=== PATIENT | female | born 1985 | race African-American/Black ===

== ENCOUNTER 2017-10-17 06:33 | Inpatient (IN) | payer MEDICAID, OTHER ==
[~2017-10-17] VITALS: Ht 165.1 cm; Wt 65.8 kg
[2017-10-17] MEDS ORDERED: Morphine Sulfate 4mg/ml Inj IVP ONE ×2 (07:00→08:45)
[2017-10-17] MEDS ORDERED: Ketorolac 30mg Inj IM ONE (07:00)
[2017-10-17] MEDS ORDERED: Ketorolac 30mg Inj IV ONE (07:00)
[2017-10-17] MEDS ORDERED: DiphenhydrAMINE 50mg/ml Inj IVP ONE (07:00)
[2017-10-17 07:30] VITALS: BP 115/73
[2017-10-17 07:49] LABS: BASOPHILS % (AUTO) 1.2 % (0.0-2.0); EOSINOPHILS % (AUTO) 0.3 % (0.0-3.0); HEMATOCRIT 31.4 % (37.0-47.0); HEMOGLOBIN 10.8 G/DL (12.0-16.0); LYMPHOCYTES % (AUTO) 15.6 % (20.0-45.0); MEAN CORPUSCULAR VOLUME 80 FL (80-99); MONOCYTES % (AUTO) 7.1 % (1.0-10.0); NEUTROPHILS % (AUTO) 75.8 % (45.0-75.0); PLATELET COUNT 221 K/UL (150-450); RED BLOOD COUNT 3.95 M/UL (4.20-5.40); RED CELL DISTRIBUTION WIDTH 15.1 % (11.6-14.8); WHITE BLOOD COUNT 10.6 K/UL (4.8-10.8)
--- NOTE | 2017-10-17 07:49 | Emergency Room Report ---
History of Present Illness General Chief Complaint: Pain Source: Patient Present Illness HPI Patient presents in emergency department today complaining of acute sickle cell crisis. Patient states that she has a sickle cell disease and prior episodes sickle cell crisis requiring admission in the past. Patient states that usually however she is able to manage as an outpatient and she has only been admitted and seen a emergency department back in 2010 when she had a flare in [place]. She denies any recent trauma denies any drug use coughing no fever. States that the pain is mostly in her elbows shoulders and knees. She denies any chest pain or shortness of breath. No other complaints are noted. Symptoms noted to be severe. Patient appear very uncomfortable.No other modifying factors. No other associated signs and symptoms. No other complaints were noted. Allergies: Coded Allergies: No Known Allergies (Unverified , 10/17/17) Patient History Past Medical History: other - Sickle cell disease Past Surgical History: none Pertinent Family History: none Social History: Denies: smoking, alcohol use, drug use Last Menstrual Period: 10/11/17 Now: No Reviewed Nursing Documentation: PMH: Agreed; PSxH: Agreed Nursing Documentation-PMH Hx Cardiac Problems: Yes - Murmur, Sickle cell, Anemia Review of Systems All Other Systems: negative except mentioned in HPI Physical Exam Vital Signs Date Time Temp Pulse Resp B/P (MAP) Pulse Ox O2 Delivery O2 Flow Rate FiO2 10/17/17 06:40 98.5 69 24 122/86 99 Room Air 98.4 Sp02 EP Interpretation: reviewed, normal General Appearance: alert, moderate distress Head: atraumatic Eyes: bilateral eye normal inspection ENT: normal ENT inspection, hearing grossly normal, normal voice Neck: normal inspection, full range of motion, supple, no bony tend Respiratory: normal inspection, lungs clear, normal breath sounds, no respiratory distress, no retraction, no wheezing Cardiovascular #1: regular rate, rhythm, no edema Gastrointestinal: normal inspection, soft, no guarding, no hernia Genitourinary: no CVA tenderness Musculoskeletal: normal inspection, back normal, normal range of motion Neurologic: normal inspection, alert, responsive, speech normal Psychiatric: depressed affect, anxious Skin: normal inspection, normal color, no rash Medical Decision Making Diagnostic Impression: Primary Impression: Sickle cell pain crisis ER Course Patient presents emergency department today complaining of body aches secondary sickle cell crisis. Differential considerations include sickle cell crisis, myalgias, arthritis just name a few.Given the severity of the patient's presentation I felt this is a highly complex patient. This patient required extensive workup. Patient's laboratory workup and history is consistent with sickle cell crisis. Patient had an IV established received Toradol Benadryl fluids and morphine. Patient's feeling better. Patient received a total of 3 L of fluids. Patient was offered admission but declined states that she would prefer to be treated at home I felt that this is reasonable given patient's symptoms are improved. Patient was given prescription for [place] to be taken as needed. Recommend outpatient follow-up with primary care physician.Patient is advised to follow up with primary doctor in 2-3 days and return the emergency room for any worsening symptoms and as needed. Labs Test 10/17/17 06:58 White Blood Count 10.6 K/UL (4.8-10.8) Red Blood Count 3.95 M/UL (4.20-5.40) Hemoglobin 10.8 G/DL (12.0-16.0) Hematocrit 31.4 % (37.0-47.0) Mean Corpuscular Volume 80 FL (80-99) Mean Corpuscular Hemoglobin 27.4 PG (27.0-31.0) Mean Corpuscular Hemoglobin Concent 34.4 G/DL (32.0-36.0) Red Cell Distribution Width 15.1 % (11.6-14.8) Platelet Count 221 K/UL (150-450) Mean Platelet Volume 7.3 FL (6.5-10.1) Neutrophils (%) (Auto) 75.8 % (45.0-75.0) Lymphocytes (%) (Auto) 15.6 % (20.0-45.0) Monocytes (%) (Auto) 7.1 % (1.0-10.0) Eosinophils (%) (Auto) 0.3 % (0.0-3.0) Basophils (%) (Auto) 1.2 % (0.0-2.0) Reticulocyte Count 4.0 % (0.0-2.0) Sodium Level 134 MMOL/L (136-145) Potassium Level 4.2 MMOL/L (3.5-5.1) Chloride Level 101 MMOL/L (98-107) Carbon Dioxide Level 21 MMOL/L (21-32) Anion Gap 12 mmol/L (5-15) Blood Urea Nitrogen 7 mg/dL (7-18) Creatinine 0.8 MG/DL (0.55-1.30) Estimat Glomerular Filtration Rate > 60 mL/min (>60) Glucose Level 128 MG/DL (74-106) Calcium Level 8.9 MG/DL (8.5-10.1) Total Bilirubin 0.9 MG/DL (0.2-1.0) Aspartate Amino Transf (AST/SGOT) 43 U/L (15-37) Alanine Aminotransferase (ALT/SGPT) 29 U/L (12-78) Alkaline Phosphatase 62 U/L (46-116) Total Protein 8.3 G/DL (6.4-8.2) Albumin 4.1 G/DL (3.4-5.0) Globulin 4.2 g/dL Albumin/Globulin Ratio 1.0 (1.0-2.7) EKG Diagnostic Results Rate: normal Rhythm: NSR ST Segments: no acute changes Rhythm Strip Diag. Results EP Interpretation: yes Rate: 63 Rhythm: NSR, no PVC's, no ectopy Last Vital Signs Date Time Temp Pulse Resp B/P (MAP) Pulse Ox O2 Delivery O2 Flow Rate FiO2 10/17/17 07:30 65 20 115/73 96 Room Air 10/17/17 07:28 98.5 Status: improved Disposition: HOME, SELF-CARE Condition: Stable Scripts Ibuprofen* (MOTRIN*) 600 Mg Tablet 600 MG ORAL Q8H PRN for For Pain, #20 TAB 0 Refills Prov: Joe Hendricks MD 10/17/17 Hydrocodone Bit/Acetaminophen 5-325* ([place] 5-325*) 1 Each Tablet 1 TAB ORAL Q6H PRN for For Pain, #20 TAB 0 Refills Prov: Joe Hendricks MD 10/17/17 Referrals: NON PHYSICIAN (PCP) Joe Hendricks MD Oct 17, 2017 07:49
[2017-10-17 08:21] LABS: ANION GAP 12 mmol/L (5-15); BLOOD UREA NITROGEN 7 mg/dL (7-18); CALCIUM 8.9 MG/DL (8.5-10.1); CARBON DIOXIDE 21 MMOL/L (21-32); CHLORIDE 101 MMOL/L (98-107); CREATININE 0.8 MG/DL (0.55-1.30); POTASSIUM 4.2 MMOL/L (3.5-5.1); SODIUM 134 MMOL/L (136-145)
[2017-10-17 08:26] LABS: ALANINE AMINOTRANSFERASE 29 U/L (12-78); ALBUMIN 4.1 G/DL (3.4-5.0); ALKALINE PHOSPHATASE 62 U/L (46-116); ASPARTATE AMINO TRANSFERASE 43 U/L (15-37); BILIRUBIN,TOTAL 0.9 MG/DL (0.2-1.0)
[2017-10-17] MEDS ORDERED: NORCO 5-325 TA1 EACH ORAL (09:03)
[2017-10-17] MEDS ORDERED: IBUPROFEN600 MG ORAL ×2 (09:03→12:13)
[2017-10-17 09:35] VITALS: BP 105/64
[2017-10-17] MEDS ORDERED: Mylanta II UD 30ml ORAL PRN (12:15)
[2017-10-17] MEDS ORDERED: Norco 5mg/325mg tab ORAL PRN ×2 (12:15→21:30)
[2017-10-17] MEDS ORDERED: Zolpidem 5mg tab ORAL PRN (12:15)
[2017-10-17] MEDS ORDERED: LORazepam Inj 2mg/ml 1ml IV PRN (12:15)
[2017-10-17] MEDS ORDERED: Miralax 17gm pkt ORAL PRN (12:15)
[2017-10-17 13:20] VITALS: BP 96/61
[2017-10-17 13:56] VITALS: BP 101/59
[2017-10-17 16:00] VITALS: BP 113/68
[2017-10-17 19:15] VITALS: BP 108/64
[2017-10-17] MEDS: Morphine Sulfate 2mg/ml Inj IVP PRN (21:43)
[2017-10-17] MEDS: Heparin 5000 units/ml inj SUBQ SCH (21:47)
[2017-10-18] VITALS: BP 124/74
[2017-10-18] MEDS: Morphine Sulfate 2mg/ml Inj IVP PRN ×5 (02:41→23:54)
[2017-10-18 04:00] VITALS: BP 118/74
[2017-10-18 06:26] LABS: EOSINOPHILS % (AUTO) 0.4 % (0.0-3.0); HEMATOCRIT 27.2 % (37.0-47.0); HEMOGLOBIN 9.5 G/DL (12.0-16.0); LYMPHOCYTES % (AUTO) 21.1 % (20.0-45.0); MEAN CORPUSCULAR VOLUME 81 FL (80-99); MONOCYTES % (AUTO) 9.9 % (1.0-10.0); NEUTROPHILS % (AUTO) 67.6 % (45.0-75.0); PLATELET COUNT 168 K/UL (150-450); RED BLOOD COUNT 3.38 M/UL (4.20-5.40); RED CELL DISTRIBUTION WIDTH 15.3 % (11.6-14.8)
[2017-10-18 06:54] LABS: ALANINE AMINOTRANSFERASE 55 U/L (12-78); ALBUMIN 3.4 G/DL (3.4-5.0); ALKALINE PHOSPHATASE 53 U/L (46-116); ANION GAP 8 mmol/L (5-15); ASPARTATE AMINO TRANSFERASE 45 U/L (15-37); BILIRUBIN,TOTAL 0.8 MG/DL (0.2-1.0); BLOOD UREA NITROGEN 4 mg/dL (7-18); CALCIUM 8.1 MG/DL (8.5-10.1); CARBON DIOXIDE 24 MMOL/L (21-32); CHLORIDE 106 MMOL/L (98-107); CREATININE 0.7 MG/DL (0.55-1.30); LACTATE DEHYDROGENASE 241 U/L (81-234); SODIUM 138 MMOL/L (136-145)
--- NOTE | 2017-10-18 07:59 | Consultation ---
History of Present Illness General Chief Complaint: Present Illness Allergies: Coded Allergies: No Known Allergies (Unverified , 10/17/17) Medication History Scheduled Ibuprofen* (Motrin*), 800 MG ORAL THREE TIMES A DAY, (Reported) Scheduled PRN Hydrocodone Bit/Acetaminophen 5-325* (Fox 5-325*), 1 TAB ORAL Q6H PRN for For Pain Ibuprofen* (Motrin*), 600 MG ORAL Q8H PRN for For Pain Patient History Healthcare decision maker Resuscitation status Full Code Advanced Directive on File Physical Exam Last 24 Hour Vital Signs Date Time Temp Pulse Resp B/P (MAP) Pulse Ox O2 Delivery O2 Flow Rate FiO2 10/18/17 04:00 97.7 55 20 118/74 100 Room Air 97.7 10/18/17 00:00 99.3 59 21 124/74 99 Room Air 99.3 10/17/17 22:13 97.9 10/17/17 21:43 97.9 10/17/17 20:15 Room Air 10/17/17 19:15 97.9 65 20 108/64 98 Room Air 97.9 10/17/17 16:22 97.9 10/17/17 16:00 97.8 68 20 113/68 99 Room Air 97.8 10/17/17 15:23 97.9 10/17/17 13:56 97.9 56 20 101/59 99 Room Air 97.9 10/17/17 13:35 98.5 54 18 96/61 99 Room Air 98.5 10/17/17 13:20 54 18 96/61 99 Room Air 10/17/17 10:35 98.5 10/17/17 09:35 58 18 105/64 99 Room Air 10/17/17 09:25 98.5 Intake and Output 10/17/17 10/18/17 19:00 07:00 Intake Total 4150 ml 1500 ml Balance 4150 ml 1500 ml Intake Oral 600 ml IV Total 4150 ml 900 ml # Voids 4 1 Laboratory Tests Test 10/17/17 10:17 10/18/17 05:10 Urine HCG, Qualitative Negative (NEGATIVE) White Blood Count 11.0 K/UL (4.8-10.8) H Red Blood Count 3.38 M/UL (4.20-5.40) L Hemoglobin 9.5 G/DL (12.0-16.0) L Hematocrit 27.2 % (37.0-47.0) L Mean Corpuscular Volume 81 FL (80-99) Mean Corpuscular Hemoglobin 28.1 PG (27.0-31.0) Mean Corpuscular Hemoglobin Concent 34.8 G/DL (32.0-36.0) Red Cell Distribution Width 15.3 % (11.6-14.8) H Platelet Count 168 K/UL (150-450) Mean Platelet Volume 7.1 FL (6.5-10.1) Neutrophils (%) (Auto) 67.6 % (45.0-75.0) Lymphocytes (%) (Auto) 21.1 % (20.0-45.0) Monocytes (%) (Auto) 9.9 % (1.0-10.0) Eosinophils (%) (Auto) 0.4 % (0.0-3.0) Basophils (%) (Auto) 1.0 % (0.0-2.0) Sodium Level 138 MMOL/L (136-145) Potassium Level 4.0 MMOL/L (3.5-5.1) Chloride Level 106 MMOL/L (98-107) Carbon Dioxide Level 24 MMOL/L (21-32) Anion Gap 8 mmol/L (5-15) Blood Urea Nitrogen 4 mg/dL (7-18) L Creatinine 0.7 MG/DL (0.55-1.30) Estimat Glomerular Filtration Rate > 60 mL/min (>60) Glucose Level 99 MG/DL (74-106) Calcium Level 8.1 MG/DL (8.5-10.1) L Total Bilirubin 0.8 MG/DL (0.2-1.0) Aspartate Amino Transf (AST/SGOT) 45 U/L (15-37) H Alanine Aminotransferase (ALT/SGPT) 55 U/L (12-78) Alkaline Phosphatase 53 U/L (46-116) Lactate Dehydrogenase 241 U/L (81-234) H Total Protein 6.9 G/DL (6.4-8.2) Albumin 3.4 G/DL (3.4-5.0) Globulin 3.5 g/dL Albumin/Globulin Ratio 1.0 (1.0-2.7) Height (Feet): 5 Height (Inches): 5.00 Weight (Pounds): 145 Medications Current Medications Medications (Trade) Dose Ordered Sig/Sabina Route PRN Reason Start Time Stop Time Status Last Admin Dose Admin Acetaminophen (Tylenol) 650 mg Q4H PRN ORAL fever 10/17/17 12:15 11/16/17 12:14 Acetaminophen/ Hydrocodone Bitart (Fox 5/325) 1 tab Q4H PRN ORAL Moderate Pain (Pain Scale 4-6) 10/17/17 21:30 10/24/17 21:29 Al Hydroxide/Mg Hydroxide (Mylanta II) 30 ml Q6H PRN ORAL dyspepsia 10/17/17 12:15 11/16/17 12:14 Dextrose (Dextrose 50%) 25 ml STAT PRN IV Hypoglycemia 10/17/17 21:45 11/16/17 21:44 Dextrose (Dextrose 50%) 50 ml STAT PRN IV Hypoglycemia 10/17/17 21:45 11/16/17 21:44 Heparin Sodium (Porcine) (Heparin 5000 units/ml) 5,000 units EVERY 12 HOURS SUBQ 10/17/17 21:00 11/16/17 20:59 10/17/17 21:47 Ibuprofen (Motrin) 600 mg Q8H PRN ORAL PAIN LEVEL 1-6 10/17/17 12:15 11/16/17 12:14 Lorazepam (Ativan 2mg/ml 1ml) 0.5 mg Q4H PRN IV For Anxiety 10/17/17 12:15 10/24/17 12:14 Morphine Sulfate (Morphine Sulfate) 2 mg Q4H PRN IVP Severe Pain (Pain Scale 7-10) 10/17/17 21:30 10/24/17 21:29 10/18/17 02:41 Ondansetron HCl (Zofran) 4 mg Q6H PRN IVP Nausea & Vomiting 10/17/17 12:15 11/16/17 12:14 Polyethylene Glycol (Miralax) 17 gm HSPRN PRN ORAL Constipation 10/17/17 12:15 11/16/17 12:14 Sodium Chloride 1,000 ml @ 75 mls/hr [id number] IV 10/17/17 12:30 11/16/17 12:29 10/18/17 02:38 Zolpidem Tartrate (Ambien) 5 mg HSPRN PRN ORAL Insomnia 10/17/17 12:15 10/24/17 12:14 Assessment/Plan Assessment/Plan (1) Sickle cell disease (2) Sickle cell crisis (3) Intractable pain seen dictated. Lucio Chavez Oct 18, 2017 07:58
[2017-10-18 08:00] VITALS: BP 114/70
[2017-10-18] MEDS: Heparin 5000 units/ml inj SUBQ SCH ×2 (09:28→21:34)
[2017-10-18] MEDS ORDERED: 1/2 NS 1000ml IV ONE (09:42)
--- NOTE | 2017-10-18 10:45 | Consultation ---
DATE OF CONSULTATION: 10/18/2017 PAIN MANAGEMENT CONSULTATION CONSULTING PHYSICIAN: Faustino Frye M.D. REFERRING PHYSICIAN: Iman Hyatt M.D. PHYSICIAN PROJECT DEVELOPMENT ENGINEER: Saran Trevizo CHIEF COMPLAINT: Generalized body pain. HISTORY OF PRESENT ILLNESS: This is a 32-year-old female, who is being seen on the Med/Surg floor of [facility] for initial comprehensive pain management consultation. The patient was admitted under the care of Dr. Oneal, due to sickle cell disease and crisis. Reports that she has been having sickle cell disease and once had a sickle cell crisis in [place]. Recently relocated from [place] to [facility]. Reports that she takes ibuprofen as an outpatient. At this time, the patient was on morphine 2 mg IV every four hours as needed for severe pain and a [place] 5/325 one tablet every four hours as needed for mild pain. The patient reports that the pain is reduced from 10/10 to 7/10. Reports the pain is an aching, soreness in her joints, which she has been tolerated well at this time and has no other complaints. We were consulted to help the patient to have adequate pain control while here in the hospital for fast recovery. PAST MEDICAL HISTORY: Sickle cell disease. PAST SURGICAL HISTORY: Denies. SOCIAL HISTORY: Denies smoking tobacco, drinking alcohol, or IV drug abuse. ALLERGIES: No known drug allergies. MEDICATIONS: Ibuprofen. REVIEW OF SYSTEMS: Denies rash, fever, chills, sweating, dizziness, drowsiness, blurred vision, sore throat, or change in weight. No shortness of breath or chest pain. No nausea, vomiting, diarrhea, or blood in the stool or urine. No bowel or bladder incontinence. No dysuria. She is complaining of generalized body pain. PHYSICAL EXAMINATION: GENERAL: Alert, awake, and oriented x3. VITAL SIGNS: Blood pressure 118/74, heart rate 55, oxygen saturation 100%, respiratory rate 20, and temperature is 97.7 degrees Fahrenheit. HEENT: PERRLA. NECK: Range of motion is full in all directions. No tenderness to paracervical muscles. No adenopathy. LUNGS: Decreased breath sounds bilaterally. HEART: Regular. ABDOMEN: Benign. BACK: Range of motion is decreased in flexion and extension with tenderness to paraspinal muscles. No tenderness to trapezius and rhomboid muscles. EXTREMITIES: Upper and lower extremity motion is decreased to the patient's clinical condition. No cyanosis. No clubbing. No edema. Sensory is intact. Reflexes are not obtainable. No adenopathy. ASSESSMENT AND PLAN: This is a 32-year-old female with sickle cell disease, sickle cell crisis, intractable pain. The patient will be continued on morphine and [place] as needed. We recommend the patient to be seen by starch crab. The patient was discussed with Dr. Frye and Dr. Frye concurred. We will follow the patient. Thank you very much for the courtesy of this consultation. Faustino Frye M.D. AUSTIN Trevizo DR: MIKE JOB#: [id number] CC: NO
[2017-10-18 12:00] VITALS: BP 118/54
--- NOTE | 2017-10-18 13:55 | Consultation ---
History of Present Illness General Chief Complaint: Pain Present Illness Allergies: Coded Allergies: No Known Allergies (Unverified , 10/17/17) Medication History Scheduled Ibuprofen* (Motrin*), 800 MG ORAL THREE TIMES A DAY, (Reported) Scheduled PRN Hydrocodone Bit/Acetaminophen 5-325* ([place] 5-325*), 1 TAB ORAL Q6H PRN for For Pain Ibuprofen* (Motrin*), 600 MG ORAL Q8H PRN for For Pain Patient History Healthcare decision maker Resuscitation status Full Code Advanced Directive on File Physical Exam Last 24 Hour Vital Signs Date Time Temp Pulse Resp B/P (MAP) Pulse Ox O2 Delivery O2 Flow Rate FiO2 10/18/17 13:54 96.8 10/18/17 12:00 96.8 54 20 118/54 100 Room Air 96.8 10/18/17 09:52 98.7 10/18/17 09:22 98.7 10/18/17 08:00 98.7 54 20 114/70 100 98.7 10/18/17 04:00 97.7 55 20 118/74 100 Room Air 97.7 10/18/17 00:00 99.3 59 21 124/74 99 Room Air 99.3 10/17/17 21:43 97.9 10/17/17 20:15 Room Air 10/17/17 19:15 97.9 65 20 108/64 98 Room Air 97.9 10/17/17 16:22 97.9 10/17/17 16:00 97.8 68 20 113/68 99 Room Air 97.8 10/17/17 15:23 97.9 10/17/17 13:56 97.9 56 20 101/59 99 Room Air 97.9 Intake and Output 10/17/17 10/18/17 19:00 07:00 Intake Total 4150 ml 1500 ml Balance 4150 ml 1500 ml Intake Oral 600 ml IV Total 4150 ml 900 ml # Voids 4 1 Laboratory Tests Test 10/18/17 05:10 White Blood Count 11.0 K/UL (4.8-10.8) H Red Blood Count 3.38 M/UL (4.20-5.40) L Hemoglobin 9.5 G/DL (12.0-16.0) L Hematocrit 27.2 % (37.0-47.0) L Mean Corpuscular Volume 81 FL (80-99) Mean Corpuscular Hemoglobin 28.1 PG (27.0-31.0) Mean Corpuscular Hemoglobin Concent 34.8 G/DL (32.0-36.0) Red Cell Distribution Width 15.3 % (11.6-14.8) H Platelet Count 168 K/UL (150-450) Mean Platelet Volume 7.1 FL (6.5-10.1) Neutrophils (%) (Auto) 67.6 % (45.0-75.0) Lymphocytes (%) (Auto) 21.1 % (20.0-45.0) Monocytes (%) (Auto) 9.9 % (1.0-10.0) Eosinophils (%) (Auto) 0.4 % (0.0-3.0) Basophils (%) (Auto) 1.0 % (0.0-2.0) Sodium Level 138 MMOL/L (136-145) Potassium Level 4.0 MMOL/L (3.5-5.1) Chloride Level 106 MMOL/L (98-107) Carbon Dioxide Level 24 MMOL/L (21-32) Anion Gap 8 mmol/L (5-15) Blood Urea Nitrogen 4 mg/dL (7-18) L Creatinine 0.7 MG/DL (0.55-1.30) Estimat Glomerular Filtration Rate > 60 mL/min (>60) Glucose Level 99 MG/DL (74-106) Calcium Level 8.1 MG/DL (8.5-10.1) L Total Bilirubin 0.8 MG/DL (0.2-1.0) Aspartate Amino Transf (AST/SGOT) 45 U/L (15-37) H Alanine Aminotransferase (ALT/SGPT) 55 U/L (12-78) Alkaline Phosphatase 53 U/L (46-116) Lactate Dehydrogenase 241 U/L (81-234) H Total Protein 6.9 G/DL (6.4-8.2) Albumin 3.4 G/DL (3.4-5.0) Globulin 3.5 g/dL Albumin/Globulin Ratio 1.0 (1.0-2.7) Height (Feet): 5 Height (Inches): 5.00 Weight (Pounds): 145 Medications Current Medications Medications (Trade) Dose Ordered Sig/Sabina Route PRN Reason Start Time Stop Time Status Last Admin Dose Admin Acetaminophen (Tylenol) 650 mg Q4H PRN ORAL fever 10/17/17 12:15 11/16/17 12:14 Acetaminophen/ Hydrocodone Bitart ([place] 5/325) 1 tab Q4H PRN ORAL Moderate Pain (Pain Scale 4-6) 10/17/17 21:30 10/24/17 21:29 Al Hydroxide/Mg Hydroxide (Mylanta II) 30 ml Q6H PRN ORAL dyspepsia 10/17/17 12:15 11/16/17 12:14 Dextrose (Dextrose 50%) 25 ml STAT PRN IV Hypoglycemia 10/17/17 21:45 11/16/17 21:44 Dextrose (Dextrose 50%) 50 ml STAT PRN IV Hypoglycemia 10/17/17 21:45 11/16/17 21:44 Heparin Sodium (Porcine) (Heparin 5000 units/ml) 5,000 units EVERY 12 HOURS SUBQ 10/17/17 21:00 11/16/17 20:59 10/18/17 09:28 Ibuprofen (Motrin) 600 mg Q8H PRN ORAL PAIN LEVEL 1-6 10/17/17 12:15 11/16/17 12:14 Lorazepam (Ativan 2mg/ml 1ml) 0.5 mg Q4H PRN IV For Anxiety 10/17/17 12:15 10/24/17 12:14 Morphine Sulfate (Morphine Sulfate) 2 mg Q4H PRN IVP Severe Pain (Pain Scale 7-10) 10/17/17 21:30 10/24/17 21:29 10/18/17 13:54 Ondansetron HCl (Zofran) 4 mg Q6H PRN IVP Nausea & Vomiting 10/17/17 12:15 11/16/17 12:14 Polyethylene Glycol (Miralax) 17 gm HSPRN PRN ORAL Constipation 10/17/17 12:15 11/16/17 12:14 Sodium Chloride 1,000 ml @ 75 mls/hr [id number] IV 10/17/17 12:30 11/16/17 12:29 10/18/17 02:38 Zolpidem Tartrate (Ambien) 5 mg HSPRN PRN ORAL Insomnia 10/17/17 12:15 10/24/17 12:14 Iman Hyatt MD Oct 18, 2017 13:55
[2017-10-18 16:00] VITALS: BP 122/65
--- NOTE | 2017-10-18 17:26 | History & Physical ---
History and Physical History & Physicial Dictated for Int Med-Dr Oneal no. [id number]. Varghese Álvarez MD Oct 18, 2017 17:26
--- NOTE | 2017-10-18 18:30 | History and Physical Report ---
DATE OF ADMISSION: 10/17/2017 CHIEF COMPLAINT: The patient is a 32-year-old female, presents with chief complaint of generalized pain. HISTORY OF PRESENT ILLNESS: The patient has a history of sickle cell disease. The patient recently moved to [place] from [place]. The patient states she has been hospitalized in the past for sickle cell crisis. The patient states history of present illness began two days previously. The patient began to have joint pain. The patient complains of bilateral shoulder, elbow, knee and quesada pain. The patient presented to [facility]. The patient was admitted with sickle cell crisis. REVIEW OF SYSTEMS: CONSTITUTIONAL: The patient denies weight loss or gain. The patient denies fevers or chills. HEENT: The patient denies ear or throat pain. The patient denies headache. CARDIOVASCULAR: The patient denies palpitations or chest pain. CHEST: The patient denies wheeze or shortness of breath. ABDOMEN: The patient denies nausea, vomiting, diarrhea, or constipation. GENITOURINARY: The patient denies dysuria or increased frequency of urination. NEUROMUSCULAR: The patient complains of generalized pain as above. The patient denies seizures or generalized weakness. PAST MEDICAL HISTORY: Significant for sickle cell disease. PAST SURGICAL HISTORY: Significant for tonsillectomy. CURRENT MEDICATIONS: P.r.n. ibuprofen. ALLERGIES: No known drug allergies. SOCIAL HISTORY: The patient is single and works for [employer]. The patient denies tobacco use. The patient has occasional alcohol use. The patient does smoke medical marijuana. PHYSICAL EXAMINATION: GENERAL: The patient is well-developed and well-nourished female, in no apparent distress. VITAL SIGNS: Temperature 98.7 degrees, respirations 20, pulse 64, and blood pressure 114/70. HEENT: Eyes, pupils equal and responsive to light and accommodation. Extraocular movements are intact. NECK: Supple without lymphadenopathy. CHEST: Lungs are clear to auscultation bilaterally without wheezes or rales. CARDIOVASCULAR: Regular rate. S1 and S2 normal without murmurs, rubs, or gallops. ABDOMEN: Soft, nontender, and nondistended. Positive bowel sounds. No evidence of hepatosplenomegaly. Currently, no rebound or guarding noted. EXTREMITIES: Negative for clubbing, cyanosis, or edema. RECTAL/GENITAL: Refused. NEUROLOGICAL: Cranial nerves II through XII are grossly intact without focal deficits. Motor strength is 5/5 bilaterally. Deep tendon reflexes are 2+ plantar. LABORATORY AND DIAGNOSTIC DATA: WBC 10.6, hemoglobin 10.8, hematocrit 31.4 and platelets 221,000. Sodium 134, potassium 4.2, chloride 101, CO2 21, BUN 7, creatinine 0.8 and glucose 128. ASSESSMENT: This is a 32-year-old, female 1. Sickle cell disease. 2. Sickle cell crisis. TREATMENT: Sickle cell disease/sickle cell crisis. A Hematology/Oncology consultation has been obtained with Dr. Obinna Mack. A pain management consultation has been obtained with Dr. Frye. The patient is currently receiving intravenous morphine for pain control. We will follow recommendations of pain management and Hematology. The patient is also receiving intravenous fluids with sodium chloride. Varghese Álvarez M.D. DR: ALIS JOB#: [id number] CC:
[2017-10-18 20:00] VITALS: BP 124/75
[2017-10-18 20:38] LABS: FERRITIN 117 NG/ML (8-388)
[2017-10-18 20:49] LABS: % IRON SATURATION 20 % (15-50); IRON 45 ug/dL (50-175); TOTAL IRON BINDING CAPACITY 226 ug/dL (250-450)
[2017-10-19] VITALS (7 sets, daily range): BP systolic 105–126; BP diastolic 60–77
--- NOTE | 2017-10-19 00:39 | Cardiology Report ---
APPROVED REPORT EKG Measurement Heart [id number] Sinus arrhythmia Otherwise normal ECG
--- NOTE | 2017-10-19 02:30 | Consultation ---
DATE OF CONSULTATION: 10/18/2017 NOTE: POOR AUDIO HEMATOLOGY/ONCOLOGY CONSULTATION CONSULTING PHYSICIAN: Obinna Mack M.D. REQUESTING PHYSICIANS: Faustino Frye M.D., Iman Hyatt M.D., and Michael Oneal M.D. REASON FOR CONSULTATION: Evaluation of sickle cell crisis. IDENTIFYING DATA: Dear Dr. Frye, Dr. Hyatt, and Dr. Oneal, The patient is a pleasant 32-year-old female, admitted to [facility] for sickle cell crisis and history of sickle cell disease. Noticed that she had a crisis back in [place]. Recently moved [place] to [place] reports some pain 10/23. She is tolerating medications well otherwise. Hematology Service was consulted for further evaluation of sickle cell disease. PAST MEDICAL HISTORY: Sickle cell disease. PAST SURGICAL HISTORY: None noted. MEDICATIONS: Ibuprofen. ALLERGIES: No known drug allergies. SOCIAL HISTORY: No alcohol, tobacco, or illicit drug use. REVIEW OF SYSTEMS: CONSTITUTIONAL: No fever, chills, or night sweats. SKIN: No rashes, bumps, or itching. HEENT: No headache, hearing or vision changes. BREASTS: No lumps, pain, or discharge. PULMONARY: No cough, sputum, or shortness of breath. GASTROINTESTINAL: No nausea, vomiting, or diarrhea. GENITOURINARY: No dysuria, frequency, or urgency. MUSCULOSKELETAL: No muscle pain, joint swelling, or trauma. PHYSICAL EXAMINATION: VITAL SIGNS: Reviewed. GENERAL: No distress. PULMONARY: Decreased breath sounds. Some crackles at the bases. CARDIOVASCULAR: Regular rate. No S3 or S4. ABDOMEN: Soft, nontender, and nondistended. EXTREMITIES: A 1+ edema. LABORATORY DATA: Labs reviewed. WBC 11, hemoglobin 9.5, and platelet count of 168,000. Chemistry reviewed. Calcium 8.1, BUN of 4, and creatinine 0.9. ASSESSMENT AND RECOMMENDATIONS: 1. Sickle cell crisis. Obtain hemoglobin electrophoresis, reticulocyte count, LDH, peripheral smear, screen. In addition, obtain chest x-ray. 2. Anemia due to underlying chronic disease. 3. Leukocytosis, secondary to reactive process. 4. Pain syndrome, potentially secondary to sickle cell disease versus malingering. Continue to closely monitor. Obinna Mack M.D. DR: Mckenna JOB#: [id number] CC:
[2017-10-19 06:31] LABS: BASOPHILS % (AUTO) 1.3 % (0.0-2.0); EOSINOPHILS % (AUTO) 0.8 % (0.0-3.0); HEMATOCRIT 29.1 % (37.0-47.0); HEMOGLOBIN 10.3 G/DL (12.0-16.0); LYMPHOCYTES % (AUTO) 22.2 % (20.0-45.0); MEAN CORPUSCULAR VOLUME 81 FL (80-99); MONOCYTES % (AUTO) 8.4 % (1.0-10.0); NEUTROPHILS % (AUTO) 67.4 % (45.0-75.0); PLATELET COUNT 165 K/UL (150-450); RED BLOOD COUNT 3.59 M/UL (4.20-5.40); RED CELL DISTRIBUTION WIDTH 15.5 % (11.6-14.8); WHITE BLOOD COUNT 9.8 K/UL (4.8-10.8)
[2017-10-19 06:55] LABS: ALANINE AMINOTRANSFERASE 77 U/L (12-78); ALBUMIN 3.6 G/DL (3.4-5.0); ALBUMIN/GLOBULIN RATIO 0.9 (1.0-2.7); ALKALINE PHOSPHATASE 69 U/L (46-116); ANION GAP 8 mmol/L (5-15); ASPARTATE AMINO TRANSFERASE 45 U/L (15-37); BILIRUBIN,TOTAL 0.9 MG/DL (0.2-1.0); BLOOD UREA NITROGEN 5 mg/dL (7-18); CALCIUM 8.7 MG/DL (8.5-10.1); CARBON DIOXIDE 26 MMOL/L (21-32); CHLORIDE 101 MMOL/L (98-107); CREATININE 0.7 MG/DL (0.55-1.30); LACTATE DEHYDROGENASE 296 U/L (81-234); POTASSIUM 3.7 MMOL/L (3.5-5.1); SODIUM 135 MMOL/L (136-145)
[2017-10-19 07:28] LABS: PHOSPHORUS 3.6 MG/DL (2.5-4.9)
[2017-10-19] MEDS: Heparin 5000 units/ml inj SUBQ SCH ×2 (09:19→20:36)
[2017-10-19] MEDS ORDERED: 1/2 NS 1000ml IV ONE (10:05)
--- NOTE | 2017-10-19 11:23 | General Progress Note ---
Assessment/Plan Status: stable Assessment/Plan 1. Sickle cell crisis. Sickle cell screen is positive --> Obtain hemoglobin electrophoresis, LDH, peripheral smear pending --> reticulocyte count 5.2 and pending daily --> does not take hydrea at home --> f/u with edi developer once discharged --> chest x-ray reviewed and was negative for acute process 2. Anemia due to underlying chronic disease. --> continue to closely monitor --> Hgb goal >7 3. Leukocytosis, secondary to reactive process. --> wbc improved, no abx required 4. Pain syndrome, potentially secondary to sickle cell disease versus malingering. --> Continue to closely monitor. Subjective Date patient seen: Oct 19, 2017 Allergies: Coded Allergies: No Known Allergies (Unverified , 10/17/17) All Systems: reviewed and negative except above Subjective Pt resting in bed. No acute events. Vitals are stable. Objective Last 24 Hour Vital Signs Date Time Temp Pulse Resp B/P (MAP) Pulse Ox O2 Delivery O2 Flow Rate FiO2 10/19/17 08:00 98.0 60 20 113/66 97 98.0 10/19/17 04:00 98.5 60 20 123/72 98 98.5 10/19/17 00:24 98.2 10/19/17 00:00 97.5 56 20 126/77 98 97.5 10/18/17 20:00 98.2 60 20 124/75 100 98.2 10/18/17 18:56 97.2 10/18/17 16:00 97.2 56 19 122/65 100 97.2 10/18/17 13:54 96.8 10/18/17 12:00 96.8 54 20 118/54 100 Room Air 96.8 Intake and Output 10/18/17 10/19/17 19:00 07:00 Intake Total 750 ml 1725 ml Balance 750 ml 1725 ml Intake Oral 900 ml IV Total 750 ml 825 ml # Voids 3 Laboratory Tests 10/18/17 19:15: Reticulocyte Count 5.2H, Sickle Cell Screen [Pending], Hemoglobin A [Pending], Hemoglobin A2 [Pending], Hemoglobin C [Pending], Hemoglobin F () [Pending] , Hemoglobin S [Pending], Variant Hemoglobin [Pending], Hemoglobin Electrophoresis Interp [Pending], Hemoglobin Interpretation [Pending], Hemoglobin Solubility [Pending], Iron Level 45L, Total Iron Binding Capacity 226L, Percent Iron Saturation 20, Unsaturated Iron Binding 181, Ferritin 117, Vitamin B12 Level 431, Folate 6.5L, Thyroid Stimulating Hormone (TSH) 1.060 10/19/17 05:10: White Blood Count 9.8, Red Blood Count 3.59L, Hemoglobin 10.3L, Hematocrit 29.1L , Mean Corpuscular Volume 81, Mean Corpuscular Hemoglobin 28.7, Mean Corpuscular Hemoglobin Concent 35.5, Red Cell Distribution Width 15.5H, Platelet Count 165, Mean Platelet Volume 6.6, Neutrophils (%) (Auto) 67.4, Lymphocytes (%) (Auto) 22.2, Monocytes (%) (Auto) 8.4, Eosinophils (%) (Auto) 0.8, Basophils (%) (Auto) 1.3, Sodium Level 135L, Potassium Level 3.7, Chloride Level 101, Carbon Dioxide Level 26, Anion Gap 8, Blood Urea Nitrogen 5L, Creatinine 0.7, Estimat Glomerular Filtration Rate > 60, Glucose Level 92, Calcium Level 8.7, Phosphorus Level 3.6, Magnesium Level 1.5L, Total Bilirubin 0.9, Aspartate Amino Transf (AST/SGOT) 45H, Alanine Aminotransferase (ALT/SGPT) 77, Alkaline Phosphatase 69, Lactate Dehydrogenase 296H, Total Protein 7.5, Albumin 3.6, Globulin 3.9, Albumin/Globulin Ratio 0.9L Height (Feet): 5 Height (Inches): 5.00 Weight (Pounds): 145 General Appearance: no apparent distress, alert EENT: PERRL/EOMI Neck: normal alignment Cardiovascular: normal peripheral pulses Respiratory/Chest: no respiratory distress Abdomen: no mass Obinna Mack MD Oct 19, 2017 11:22
--- NOTE | 2017-10-19 11:38 | Diagnostic Imaging Report ---
Indication: Dyspnea Comparison: None A single view chest radiograph was obtained. Findings: Cardiomediastinal appearance is within normal limits for age. Pulmonary vascularity is appropriate. The diaphragmatic contour is smooth and costophrenic angles are sharp. No pleural effusions are identified. The bones are unremarkable. Impression: No acute findings
--- NOTE | 2017-10-19 12:02 | General Progress Note ---
Assessment/Plan Assessment/Plan (1) Sickle cell disease (2) Sickle cell crisis (3) Intractable pain Patient will be continued on Morphine and [place] as needed D/w Dr. Frye and he concurred. Subjective Date patient seen: Oct 19, 2017 Time patient seen: 11:00 - am Allergies: Coded Allergies: No Known Allergies (Unverified , 10/17/17) Subjective REVIEW OF SYSTEMS: Denies rash, fever, chills, sweating, dizziness, drowsiness, blurred vision, sore throat, or change in weight. No shortness of breath or chest pain. No nausea, vomiting, diarrhea, or blood in the stool or urine. No bowel or bladder incontinence. No dysuria. She is complaining of generalized body pain. SUBJECTIVE: Patient is in bed and continues to c/o pain which has been tolerated on the Morphine which she uses as needed. Having received 3 doses of Morphine as needed. She has no new complaints. Objective Last 24 Hour Vital Signs Date Time Temp Pulse Resp B/P (MAP) Pulse Ox O2 Delivery O2 Flow Rate FiO2 10/19/17 08:00 98.0 60 20 113/66 97 98.0 10/19/17 04:00 98.5 60 20 123/72 98 98.5 10/19/17 00:24 98.2 10/19/17 00:00 97.5 56 20 126/77 98 97.5 10/18/17 20:00 98.2 60 20 124/75 100 98.2 10/18/17 18:56 97.2 10/18/17 16:00 97.2 56 19 122/65 100 97.2 10/18/17 13:54 96.8 10/18/17 12:00 96.8 54 20 118/54 100 Room Air 96.8 Intake and Output 10/18/17 10/19/17 19:00 07:00 Intake Total 750 ml 1725 ml Balance 750 ml 1725 ml Intake Oral 900 ml IV Total 750 ml 825 ml # Voids 3 Laboratory Tests 10/18/17 19:15: Reticulocyte Count 5.2H, Sickle Cell Screen [Pending], Hemoglobin A [Pending], Hemoglobin A2 [Pending], Hemoglobin C [Pending], Hemoglobin F () [Pending] , Hemoglobin S [Pending], Variant Hemoglobin [Pending], Hemoglobin Electrophoresis Interp [Pending], Hemoglobin Interpretation [Pending], Hemoglobin Solubility [Pending], Iron Level 45L, Total Iron Binding Capacity 226L, Percent Iron Saturation 20, Unsaturated Iron Binding 181, Ferritin 117, Vitamin B12 Level 431, Folate 6.5L, Thyroid Stimulating Hormone (TSH) 1.060 10/19/17 05:10: White Blood Count 9.8, Red Blood Count 3.59L, Hemoglobin 10.3L, Hematocrit 29.1L , Mean Corpuscular Volume 81, Mean Corpuscular Hemoglobin 28.7, Mean Corpuscular Hemoglobin Concent 35.5, Red Cell Distribution Width 15.5H, Platelet Count 165, Mean Platelet Volume 6.6, Neutrophils (%) (Auto) 67.4, Lymphocytes (%) (Auto) 22.2, Monocytes (%) (Auto) 8.4, Eosinophils (%) (Auto) 0.8, Basophils (%) (Auto) 1.3, Sodium Level 135L, Potassium Level 3.7, Chloride Level 101, Carbon Dioxide Level 26, Anion Gap 8, Blood Urea Nitrogen 5L, Creatinine 0.7, Estimat Glomerular Filtration Rate > 60, Glucose Level 92, Calcium Level 8.7, Phosphorus Level 3.6, Magnesium Level 1.5L, Total Bilirubin 0.9, Aspartate Amino Transf (AST/SGOT) 45H, Alanine Aminotransferase (ALT/SGPT) 77, Alkaline Phosphatase 69, Lactate Dehydrogenase 296H, Total Protein 7.5, Albumin 3.6, Globulin 3.9, Albumin/Globulin Ratio 0.9L Height (Feet): 5 Height (Inches): 5.00 Weight (Pounds): 145 Objective GENERAL: Alert, awake, and oriented x3. HEENT: PERRLA. NECK: Range of motion is full in all directions. No tenderness to paracervical muscles. No adenopathy. LUNGS: Decreased breath sounds bilaterally. HEART: Regular. ABDOMEN: Benign. EXTREMITIES: No cyanosis. No clubbing. No edema. NEURO: No changes. Lucio Chavez Oct 19, 2017 12:02
--- NOTE | 2017-10-19 17:38 | Internal Med Progress Note ---
Subjective Date of Service: Oct 19, 2017 Physician Name Varghese Álvarez Attending Physician Michael Oneal MD Current Medications Medications (Trade) Dose Ordered Sig/Sabina Route PRN Reason Start Time Stop Time Status Last Admin Dose Admin Acetaminophen (Tylenol) 650 mg Q4H PRN ORAL fever 10/17/17 12:15 11/16/17 12:14 Acetaminophen/ Hydrocodone Bitart ([place] 5/325) 1 tab Q4H PRN ORAL Moderate Pain (Pain Scale 4-6) 10/17/17 21:30 10/24/17 21:29 Al Hydroxide/Mg Hydroxide (Mylanta II) 30 ml Q6H PRN ORAL dyspepsia 10/17/17 12:15 11/16/17 12:14 Dextrose (Dextrose 50%) 25 ml STAT PRN IV Hypoglycemia 10/17/17 21:45 11/16/17 21:44 Dextrose (Dextrose 50%) 50 ml STAT PRN IV Hypoglycemia 10/17/17 21:45 11/16/17 21:44 Folic Acid (Folate) 1 mg DAILY ORAL 10/20/17 09:00 11/19/17 08:59 Heparin Sodium (Porcine) (Heparin 5000 units/ml) 5,000 units EVERY 12 HOURS SUBQ 10/17/17 21:00 11/16/17 20:59 10/19/17 09:19 Ibuprofen (Motrin) 600 mg Q8H PRN ORAL PAIN LEVEL 1-6 10/17/17 12:15 11/16/17 12:14 Lorazepam (Ativan 2mg/ml 1ml) 0.5 mg Q4H PRN IV For Anxiety 10/17/17 12:15 10/24/17 12:14 Morphine Sulfate (Morphine Sulfate) 2 mg Q4H PRN IVP Severe Pain (Pain Scale 7-10) 10/17/17 21:30 10/24/17 21:29 10/18/17 23:54 Ondansetron HCl (Zofran) 4 mg Q6H PRN IVP Nausea & Vomiting 10/17/17 12:15 11/16/17 12:14 Polyethylene Glycol (Miralax) 17 gm HSPRN PRN ORAL Constipation 10/17/17 12:15 11/16/17 12:14 Sodium Chloride 1,000 ml @ 75 mls/hr [id number] IV 10/17/17 12:30 11/16/17 12:29 10/19/17 17:09 Zolpidem Tartrate (Ambien) 5 mg HSPRN PRN ORAL Insomnia 10/17/17 12:15 10/24/17 12:14 Allergies: Coded Allergies: No Known Allergies (Unverified , 10/17/17) ROS Limited/Unobtainable: No Constitutional: Reports: no symptoms HEENT: Reports: no symptoms Cardiovascular: Reports: no symptoms Respiratory: Reports: no symptoms Gastrointestinal/Abdominal: Reports: no symptoms Genitourinary: Reports: no symptoms Neurologic/Psychiatric: Reports: no symptoms Subjective 32 YO F with sickle cell dis, admitted with sickle cell crisis. Cover for Int med-Dr Oneal. Objective Last Vital Signs Date Time Temp Pulse Resp B/P (MAP) Pulse Ox O2 Delivery O2 Flow Rate FiO2 10/19/17 15:55 98.0 69 20 105/60 (75) 97 98.0 10/18/17 12:00 Room Air General Appearance: WD/WN, no apparent distress, alert EENT: PERRL/EOMI, normal ENT inspection Neck: non-tender, normal alignment, supple, normal inspection Cardiovascular: normal peripheral pulses, normal rate, regular rhythm, no gallop/murmur, no JVD Respiratory/Chest: chest wall non-tender, lungs clear, normal breath sounds, no respiratory distress, no accessory muscle use Abdomen: normal bowel sounds, non tender, soft, no organomegaly, no mass Extremities: normal range of motion, non-tender 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, no motor/sensory deficits Skin: normal pigmentation, warm/dry Laboratory Tests Test 10/18/17 19:15 10/19/17 05:10 Reticulocyte Count 5.2 % (0.0-2.0) H Sickle Cell Screen Positive (Negative) H Hemoglobin A Pending Hemoglobin A2 Pending Hemoglobin C Pending Hemoglobin F () Pending Hemoglobin S Pending Variant Hemoglobin Pending Hemoglobin Electrophoresis Interp Pending Hemoglobin Interpretation Pending Hemoglobin Solubility Pending Iron Level 45 ug/dL (50-175) L Total Iron Binding Capacity 226 ug/dL (250-450) L Percent Iron Saturation 20 % (15-50) Unsaturated Iron Binding 181 ug/dL (112-346) Ferritin 117 NG/ML (8-388) Vitamin B12 Level 431 PG/ML (193-986) Folate 6.5 NG/ML (8.6-58.9) L Thyroid Stimulating Hormone (TSH) 1.060 uiU/mL (0.358-3.740) White Blood Count 9.8 K/UL (4.8-10.8) Red Blood Count 3.59 M/UL (4.20-5.40) L Hemoglobin 10.3 G/DL (12.0-16.0) L Hematocrit 29.1 % (37.0-47.0) L Mean Corpuscular Volume 81 FL (80-99) Mean Corpuscular Hemoglobin 28.7 PG (27.0-31.0) Mean Corpuscular Hemoglobin Concent 35.5 G/DL (32.0-36.0) Red Cell Distribution Width 15.5 % (11.6-14.8) H Platelet Count 165 K/UL (150-450) Mean Platelet Volume 6.6 FL (6.5-10.1) Neutrophils (%) (Auto) 67.4 % (45.0-75.0) Lymphocytes (%) (Auto) 22.2 % (20.0-45.0) Monocytes (%) (Auto) 8.4 % (1.0-10.0) Eosinophils (%) (Auto) 0.8 % (0.0-3.0) Basophils (%) (Auto) 1.3 % (0.0-2.0) Sodium Level 135 MMOL/L (136-145) L Potassium Level 3.7 MMOL/L (3.5-5.1) Chloride Level 101 MMOL/L (98-107) Carbon Dioxide Level 26 MMOL/L (21-32) Anion Gap 8 mmol/L (5-15) Blood Urea Nitrogen 5 mg/dL (7-18) L Creatinine 0.7 MG/DL (0.55-1.30) Estimat Glomerular Filtration Rate > 60 mL/min (>60) Glucose Level 92 MG/DL (74-106) Calcium Level 8.7 MG/DL (8.5-10.1) Phosphorus Level 3.6 MG/DL (2.5-4.9) Magnesium Level 1.5 MG/DL (1.8-2.4) L Total Bilirubin 0.9 MG/DL (0.2-1.0) Aspartate Amino Transf (AST/SGOT) 45 U/L (15-37) H Alanine Aminotransferase (ALT/SGPT) 77 U/L (12-78) Alkaline Phosphatase 69 U/L (46-116) Lactate Dehydrogenase 296 U/L (81-234) H Total Protein 7.5 G/DL (6.4-8.2) Albumin 3.6 G/DL (3.4-5.0) Globulin 3.9 g/dL Albumin/Globulin Ratio 0.9 (1.0-2.7) L Intake and Output 10/18/17 10/19/17 19:00 07:00 Intake Total 750 ml 1725 ml Balance 750 ml 1725 ml Intake Oral 900 ml IV Total 750 ml 825 ml # Voids 3 Assessment/Plan Problem List: (1) Sickle cell disease Assessment & Plan: See hematology note. (2) Sickle cell crisis Assessment & Plan: Continue pain management and IV fluids. (3) Sickle cell pain crisis Status: not improved Varghese Álvarez MD Oct 19, 2017 17:38
[2017-10-20] VITALS: BP 95/64
[2017-10-20 04:41] VITALS: BP 104/69
[2017-10-20 07:11] LABS: ANION GAP 10 mmol/L (5-15); BLOOD UREA NITROGEN 8 mg/dL (7-18); CALCIUM 9.2 MG/DL (8.5-10.1); CARBON DIOXIDE 25 MMOL/L (21-32); CHLORIDE 102 MMOL/L (98-107); CREATININE 0.7 MG/DL (0.55-1.30); POTASSIUM 3.8 MMOL/L (3.5-5.1); SODIUM 137 MMOL/L (136-145)
[2017-10-20 07:30] LABS: BASOPHILS % (AUTO) 1.3 % (0.0-2.0); EOSINOPHILS % (AUTO) 1.9 % (0.0-3.0); HEMOGLOBIN 10.3 G/DL (12.0-16.0); LYMPHOCYTES % (AUTO) 31.7 % (20.0-45.0); MEAN CORPUSCULAR VOLUME 81 FL (80-99); MONOCYTES % (AUTO) 9.4 % (1.0-10.0); NEUTROPHILS % (AUTO) 55.8 % (45.0-75.0); PLATELET COUNT 148 K/UL (150-450); RED BLOOD COUNT 3.71 M/UL (4.20-5.40); RED CELL DISTRIBUTION WIDTH 15.2 % (11.6-14.8); WHITE BLOOD COUNT 8.1 K/UL (4.8-10.8)
--- NOTE | 2017-10-20 07:50 | General Progress Note ---
Assessment/Plan Status: stable Assessment/Plan 1. Sickle cell crisis. Sickle cell screen is positive --> Obtain hemoglobin electrophoresis, LDH, peripheral smear pending --> reticulocyte count 5.2 and pending daily --> does not take hydrea at home --> f/u with director translation once discharged --> chest x-ray reviewed and was negative for acute process 2. Anemia due to underlying chronic disease. --> continue to closely monitor --> Hgb goal >7 3. Leukocytosis, secondary to reactive process. --> wbc improved, no abx required 4. Pain syndrome, potentially secondary to sickle cell disease versus malingering. --> Continue to closely monitor. Subjective Date patient seen: Oct 20, 2017 Allergies: Coded Allergies: No Known Allergies (Unverified , 10/17/17) All Systems: reviewed and negative except above Subjective Pt resting in bed. No acute events. Vitals are stable. Objective Last 24 Hour Vital Signs Date Time Temp Pulse Resp B/P (MAP) Pulse Ox O2 Delivery O2 Flow Rate FiO2 10/20/17 04:41 98.7 61 18 104/69 (81) 97 98.7 10/20/17 00:00 98.8 67 18 95/64 (74) 98 98.8 10/19/17 22:42 Room Air 10/19/17 20:00 97.5 73 18 107/64 (78) 100 97.5 10/19/17 15:55 98.0 69 20 105/60 (75) 97 98.0 10/19/17 14:00 98.0 60 18 118/71 (87) 98 98.0 10/19/17 12:00 98.1 60 18 118/71 (87) 98 98.1 10/19/17 08:00 98.0 60 20 113/66 97 98.0 Intake and Output 10/19/17 10/20/17 19:00 07:00 Intake Total 75 ml 1550 ml Balance 75 ml 1550 ml Intake Oral 800 ml IV Total 75 ml 750 ml # Voids 5 # Bowel Movements 1 Laboratory Tests 10/20/17 05:25: White Blood Count 8.1, Red Blood Count 3.71L, Hemoglobin 10.3L, Hematocrit 30.0L , Mean Corpuscular Volume 81, Mean Corpuscular Hemoglobin 27.8, Mean Corpuscular Hemoglobin Concent 34.4, Red Cell Distribution Width 15.2H, Platelet Count 148L, Mean Platelet Volume 6.9, Neutrophils (%) (Auto) 55.8, Lymphocytes (%) (Auto) 31.7, Monocytes (%) (Auto) 9.4, Eosinophils (%) (Auto) 1.9, Basophils (%) (Auto) 1.3, Sodium Level 137, Potassium Level 3.8, Chloride Level 102, Carbon Dioxide Level 25, Anion Gap 10, Blood Urea Nitrogen 8, Creatinine 0.7, Estimat Glomerular Filtration Rate > 60, Glucose Level 87, Calcium Level 9.2, Lactate Dehydrogenase 300H Height (Feet): 5 Height (Inches): 5.00 Weight (Pounds): 145 General Appearance: no apparent distress, alert EENT: PERRL/EOMI Neck: normal alignment, supple Cardiovascular: normal peripheral pulses Respiratory/Chest: normal breath sounds, no respiratory distress Abdomen: no mass Obinna Mack MD Oct 20, 2017 07:50
[2017-10-20 08:00] VITALS: BP 100/55
[2017-10-20] MEDS: Heparin 5000 units/ml inj SUBQ SCH (08:18)
[2017-10-20 12:00] VITALS: BP 101/62
--- NOTE | 2017-10-20 13:39 | Internal Med Progress Note ---
Subjective Date of Service: Oct 20, 2017 Physician Name Varghese Álvarez Attending Physician Michael Oneal MD Current Medications Medications (Trade) Dose Ordered Sig/Sabina Route PRN Reason Start Time Stop Time Status Last Admin Dose Admin Acetaminophen (Tylenol) 650 mg Q4H PRN ORAL fever 10/17/17 12:15 11/16/17 12:14 Acetaminophen/ Hydrocodone Bitart ([place] 5/325) 1 tab Q4H PRN ORAL Moderate Pain (Pain Scale 4-6) 10/17/17 21:30 10/24/17 21:29 Al Hydroxide/Mg Hydroxide (Mylanta II) 30 ml Q6H PRN ORAL dyspepsia 10/17/17 12:15 11/16/17 12:14 Dextrose (Dextrose 50%) 25 ml STAT PRN IV Hypoglycemia 10/17/17 21:45 11/16/17 21:44 Dextrose (Dextrose 50%) 50 ml STAT PRN IV Hypoglycemia 10/17/17 21:45 11/16/17 21:44 Folic Acid (Folate) 1 mg DAILY ORAL 10/20/17 09:00 11/19/17 08:59 10/20/17 08:15 Heparin Sodium (Porcine) (Heparin 5000 units/ml) 5,000 units EVERY 12 HOURS SUBQ 10/17/17 21:00 11/16/17 20:59 10/20/17 08:18 Ibuprofen (Motrin) 600 mg Q8H PRN ORAL PAIN LEVEL 1-6 10/17/17 12:15 11/16/17 12:14 Lorazepam (Ativan 2mg/ml 1ml) 0.5 mg Q4H PRN IV For Anxiety 10/17/17 12:15 10/24/17 12:14 Morphine Sulfate (Morphine Sulfate) 2 mg Q4H PRN IVP Severe Pain (Pain Scale 7-10) 10/17/17 21:30 10/24/17 21:29 10/18/17 23:54 Ondansetron HCl (Zofran) 4 mg Q6H PRN IVP Nausea & Vomiting 10/17/17 12:15 11/16/17 12:14 Polyethylene Glycol (Miralax) 17 gm HSPRN PRN ORAL Constipation 10/17/17 12:15 11/16/17 12:14 Sodium Chloride 1,000 ml @ 75 mls/hr [id number] IV 10/17/17 12:30 11/16/17 12:29 10/20/17 06:00 Zolpidem Tartrate (Ambien) 5 mg HSPRN PRN ORAL Insomnia 10/17/17 12:15 10/24/17 12:14 Allergies: Coded Allergies: No Known Allergies (Unverified , 10/17/17) ROS Limited/Unobtainable: No Constitutional: Reports: no symptoms HEENT: Reports: no symptoms Cardiovascular: Reports: no symptoms Respiratory: Reports: no symptoms Gastrointestinal/Abdominal: Reports: no symptoms Genitourinary: Reports: no symptoms Neurologic/Psychiatric: Reports: no symptoms Subjective 32 YO F with sickle cell dis, admitted with sickle cell crisis. Cover for Int med-Dr Oneal. Objective Last Vital Signs Date Time Temp Pulse Resp B/P (MAP) Pulse Ox O2 Delivery O2 Flow Rate FiO2 10/20/17 12:00 98.2 69 19 101/62 (75) 98 98.2 10/20/17 09:00 Room Air Laboratory Tests Test 10/20/17 05:25 White Blood Count 8.1 K/UL (4.8-10.8) Red Blood Count 3.71 M/UL (4.20-5.40) L Hemoglobin 10.3 G/DL (12.0-16.0) L Hematocrit 30.0 % (37.0-47.0) L Mean Corpuscular Volume 81 FL (80-99) Mean Corpuscular Hemoglobin 27.8 PG (27.0-31.0) Mean Corpuscular Hemoglobin Concent 34.4 G/DL (32.0-36.0) Red Cell Distribution Width 15.2 % (11.6-14.8) H Platelet Count 148 K/UL (150-450) L Mean Platelet Volume 6.9 FL (6.5-10.1) Neutrophils (%) (Auto) 55.8 % (45.0-75.0) Lymphocytes (%) (Auto) 31.7 % (20.0-45.0) Monocytes (%) (Auto) 9.4 % (1.0-10.0) Eosinophils (%) (Auto) 1.9 % (0.0-3.0) Basophils (%) (Auto) 1.3 % (0.0-2.0) Sodium Level 137 MMOL/L (136-145) Potassium Level 3.8 MMOL/L (3.5-5.1) Chloride Level 102 MMOL/L (98-107) Carbon Dioxide Level 25 MMOL/L (21-32) Anion Gap 10 mmol/L (5-15) Blood Urea Nitrogen 8 mg/dL (7-18) Creatinine 0.7 MG/DL (0.55-1.30) Estimat Glomerular Filtration Rate > 60 mL/min (>60) Glucose Level 87 MG/DL (74-106) Calcium Level 9.2 MG/DL (8.5-10.1) Lactate Dehydrogenase 300 U/L (81-234) H Intake and Output 10/19/17 10/20/17 19:00 07:00 Intake Total 75 ml 1550 ml Balance 75 ml 1550 ml Intake Oral 800 ml IV Total 75 ml 750 ml # Voids 5 # Bowel Movements 1 Objective General Appearance: WD/WN, no apparent distress, alert EENT: PERRL/EOMI, normal ENT inspection Neck: non-tender, normal alignment, supple, normal inspection Cardiovascular: normal peripheral pulses, normal rate, regular rhythm, no gallop/murmur, no JVD Respiratory/Chest: chest wall non-tender, lungs clear, normal breath sounds, no respiratory distress, no accessory muscle use Abdomen: normal bowel sounds, non tender, soft, no organomegaly, no mass Extremities: normal range of motion, non-tender 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 (2) Sickle cell crisis Assessment & Plan: Continue pain management and IV fluids. (3) Sickle cell pain crisis Status: stable Assessment/Plan Discharge home today. Varghese Álvarez MD Oct 20, 2017 13:39
[2017-10-20] MEDS ORDERED: 1/2 NS 1000ml IV ONE (15:17)
--- NOTE | 2017-10-22 12:50 | Discharge Summary ---
Discharge Summary Discharge Summary _ DATE OF ADMISSION:10/17/2017 DATE OF DISCHARGE: 10/20/2017 REASON FOR ADMISSION: 31 years old female with a history of sickle cell disease, presented to emergency department for evaluation due to intractable pain in her elbows , shoulders and knees. Patient had crises in the past , but was able to manage most of them at home. At this time she reported intractable pain. No recent illness. No fever, no chills She denied any trauma or injury. Upon evaluation afebrile, stable vital signs. No leukocytosis . Hemoglobin 10.8, hematocrit 31.4 . Reticulocyte count 4.0 LDH 241 Chest x-ray revealed no acute cardiopulmonary pathology, Patient admitted with diagnosis of sickle cell pain crisis , sickle cell disease CONSULTANTS: pulmonary Dr. Hyatt drilling field professional/oncologist Dr. Mack pain specialist Dr. Frye HOSPITAL COURSE: Patient admitted to medical surgical floor. Patient started on IV hydration. Supplemental oxygen provided as needed to keep pulse oximetry above 92%. Pain management provided as per pain specialist recommendations, who closely followed. Pain was eventually controlled. Bowel regimen instituted. Supportive care provided. Hemoglobin and hematocrit were closely monitored with goal to keep hemoglobin above 7. Anemia workup revealed anemia of chronic disease as well as the folic acid deficiency Patient started on folic acid. Prior to discharge hemoglobin 10.3 and hematocrit 30.0 Patient noted to have leukocytosis for one day, which resolved. Leukocytosis was likely due to reactive process secondary to sickle cell crisis. LDH was trended. Supportive care provided DVT prophylaxis provided Pain controlled. Patient was stable for discharge back to home FINAL DIAGNOSES: Sickle cell pain crisis Sickle cell disease Anemia of chronic disease Leukocytosis ,secondary to reactive process , - resolved DISCHARGE MEDICATIONS: See Medication Reconciliation list. DISCHARGE INSTRUCTIONS: Patient was discharged home. Follow up with primary care provider in one week. I have been assigned to dictate discharge summary for this account. I was not involved in the patient's management. Adriane Nichols NP Oct 22, 2017 12:50
== END 2017-10-20 15:15 | disposition home or self-care (01) | DRG 662 ==
LOC: EMR 07:12 → EDBEDREQ 12:37 → 4W 13:10
DX: D57.00 Hb-SS disease with crisis, unspecified (principal); D63.8 Anemia in other chronic diseases classified elsewhere
CPT/HCPCS: 36415; 71045; 80048; 80053; 81025; 82607; 82728; 82746; 83020; 83540; 83550; 83615; 83735; 84100; 84443; 85007; 85025; 85044; 85060; 85660; 93005; 99285